=== PATIENT | male | born 1980 | race Caucasian/White ===

== ENCOUNTER 2019-12-09 08:11 | Emergency (ER) | payer BC ==
[~2019-12-09] VITALS: Ht 185.4 cm; Wt 83.9 kg
== END 2019-12-09 10:20 | disposition home or self-care (01) ==
LOC: ER 08:11
DX: S60.022A Contusion of left index finger without damage to nail, initial encounter (principal); W23.0XXA Caught, crushed, jammed, or pinched between moving objects, initial encounter; Y93.89 Activity, other specified; Y92.59 Other trade areas as the place of occurrence of the external cause; Y99.8 Other external cause status